=== PATIENT | male | born 1950 | race Caucasian/White ===

== ENCOUNTER 2020-07-20 15:55 | Outpatient (CLI) | payer MEDICARE | END 2020-07-20 15:56 | disposition home or self-care (01) | LOC: NAV RAD 15:55 | PROVIDERS: ATTEND Family Medicine | DX: M95.8 Other specified acquired deformities of musculoskeletal system (principal); M85.612 Other cyst of bone, left shoulder; S22.31XA Fracture of one rib, right side, initial encounter for closed fracture; S42.001A Fracture of unspecified part of right clavicle, initial encounter for closed fracture; R91.8 Other nonspecific abnormal finding of lung field ==

== ENCOUNTER 2020-08-02 08:13 | Outpatient (CLI) | payer MEDICARE | END 2020-08-02 08:14 | disposition home or self-care (01) | LOC: NAV CT 08:13 | PROVIDERS: ATTEND Family Medicine | DX: N30.00 Acute cystitis without hematuria (principal); M54.5 Low back pain; S42.025D Nondisplaced fracture of shaft of left clavicle, subsequent encounter for fracture with routine healing; M89.9 Disorder of bone, unspecified; R53.83 Other fatigue; N20.0 Calculus of kidney; K57.30 Diverticulosis of large intestine without perforation or abscess without bleeding; N28.1 Cyst of kidney, acquired | CPT/HCPCS: 71260; 72126; 74177 ==

== ENCOUNTER 2020-10-04 13:18 | Outpatient (CLI) | payer MEDICARE ==
[2020-10-04 13:55] LABS: Follow-up Chemistry Comp? NO
[2020-10-06 16:38] LABS: Kappa Lambda Light Chain Ratio 0.24 (0.26-1.65); Kappa Light Chains 9.9 mg/L (3.3-19.4); Lambda Light Chain 41.1 mg/L (5.7-26.3)
[2020-10-08 16:14] LABS: Albumin 2.4 g/dL (2.9-4.4); Alpha 1 0.2 g/dL (0.0-0.4); Alpha 2 0.8 g/dL (0.4-1.0); Beta 0.5 g/dL (0.7-1.3); Gamma 0.8 g/dL (0.4-1.8); Globulin, Total 2.3 g/dL (2.2-3.9); M-Spike 0.4 g/dL (Not Observed)
== END 2020-10-04 13:19 | disposition home or self-care (01) ==
LOC: NAV LAB 13:18
PROVIDERS: ATTEND Internal Medicine Hematology & Oncology
DX: C90.00 Multiple myeloma not having achieved remission (principal)
CPT/HCPCS: 83883; 84165